=== PATIENT | female | born 1990 | race Caucasian/White ===

== ENCOUNTER 2020-01-19 17:36 | Inpatient (IN) | payer OTHER, SELFPAY ==
[2020-01-19] VITALS (16 sets, daily range): BP systolic 114–138; BP diastolic 65–106; PULSE 80–98; TEMP 36.7–37.1; BMI 30.1
--- NOTE | 2020-01-19 19:02 | LDADM ---
This patient, Jaylin Lamar, was admitted to Labor/Delivery/Recovery 105 on 01/19/20 at 17:36. Plans for labor, pain management and were discussed with patient. Patient/family oriented to hospital policies and general routines including ID bracelet, bed and alarms, visiting hours, pain management, procedures, bathroom and other care routines, personal items, smoking policy, room service/diet and guest tray routines, security routines, and visiting hours. Patient/Family are encouraged to report perceived risks to care and to ask questions if they do not understand what they are told or what they should do. See OBIX for further documentation.
[2020-01-19] MEDS: LACTATED RINGERS 1,000 ML 125 ML IV CONT (19:39)
[2020-01-19 20:19] LABS: Basophils Percent Auto 0.3 % (0.2-1.2); Eosinophils Absolute Auto 0.1 K/mm3 (0-0.3); Eosinophils Percent Auto 1.1 % (0-4.4); Hematocrit 33.7 % (37.0-47.0); Hemoglobin 11.2 g/dL (12.0-15.0); Immature Granulocyte Absolute 0.08 K/mm3 (0.00-0.031); Immature Granulocyte Percent A 0.7 % (0-0.5); Lymphocytes Absolute Auto 2.53 K/mm3 (0.9-3.2); Lymphocytes Percent Auto 22.3 % (18.3-44.2); Mean Corpuscular HGB Conc 33.2 g/dl (32-36); Mean Corpuscular Hemoglobin 29.2 pg (26-34); Mean Platelet Volume 11.2 fl (7.4-10.4); Monocytes Absolute Auto 0.8 K/mm3 (0.1-0.6); Monocytes Percent Auto 7.2 % (2.6-8.5); Neutrophils Absolute Auto 7.8 K/mm3 (1.3-6.7); Neutrophils Percent Auto 68.4 % (45.5-73.1); Platelet Count Result 172 k/mm3 (150-375); Red Blood Count 3.83 M/mm3 (4.2-5.4); Red Cell Distribution Width 14.2 % (11.5-14.5); White Blood Count 11.4 K/mm3 (4.5-10.0)
[2020-01-20] VITALS (87 sets, daily range): BP systolic 82–129; BP diastolic 45–94; PULSE 66–214; RESP 14–18; TEMP 36.4–37.5; O2SAT 84–100
[2020-01-20] MEDS: LACTATED RINGERS 1,000 ML 125 ML IV CONT ×3 (03:00→07:29)
[2020-01-20] MEDS: AMPICILLIN 2 GM/NS 100 ML 2 GM/100 ML BAG IVPB (03:58)
--- NOTE | 2020-01-20 07:10 | P.PNAN_ITS ---
Anes - Eval Pre Procedure Procedure: Labor epidural Date/Time: 01/20/20 07:10 Surgeon: Mary Desouza Preop Diagnosis: IUP Pre Op Diagnosis: PREIN Patient Data Age: 29 Gender: F Height: 1.52 m Weight: 70 kg Last Vital Signs Temp 36.4 C 01/20/20 06:16 Pulse 73 01/20/20 07:00 Resp 16 01/20/20 05:30 BP 120/65 01/20/20 07:00 Allergies Allergy/AdvReac Type Severity Reaction Status Date / Time No Known Allergies Allergy Verified 12/27/19 12:36 Home Medications Medication Instructions Recorded Confirmed Type PNV cmb#95-ferrous fumarate-FA 1 tablet PO DAILY 12/27/19 12/27/19 History [] aspirin 81 mg PO DAILY 12/27/19 12/27/19 History ergocalciferol (vitamin D2) See Rx Instructions .ROUTE .COMPLEX 12/27/19 12/27/19 History [Vitamin D2] ferrous sulfate [Iron (ferrous 325 mg PO DAILY 12/27/19 12/27/19 History sulfate)] Laboratory Tests 01/19/20 01/19/20 01/19/20 19:27 19:54 20:14 WBC 11.4 K/mm3 H K/mm3 (4.5-10.0) RBC 3.83 M/mm3 L M/mm3 (4.2-5.4) Hgb 11.2 g/dL L g/dL (12.0-15.0) Hct 33.7 % L % (37.0-47.0) MCV 88.0 fl fl (80-100) MCH 29.2 pg pg (26-34) MCHC 33.2 g/dl g/dl (32-36) RDW 14.2 % % (11.5-14.5) Plt Count 172 k/mm3 k/mm3 (150-375) MPV 11.2 fl H fl (7.4-10.4) Immature Gran % (Auto) 0.7 % H % (0-0.5) Neut % (Auto) 68.4 % % (45.5-73.1) Lymph % (Auto) 22.3 % % (18.3-44.2) [place] % (Auto) 7.2 % % (2.6-8.5) Eos % (Auto) 1.1 % % (0-4.4) Baso % (Auto) 0.3 % % (0.2-1.2) Lymph # (Auto) 2.53 K/mm3 K/mm3 (0.9-3.2) [place] # (Auto) 0.8 K/mm3 H K/mm3 (0.1-0.6) Eos # (Auto) 0.1 K/mm3 K/mm3 (0-0.3) Baso # (Auto) 0.0 K/mm3 K/mm3 (0.0-0.1) Abs Immat Gran (auto) 0.08 K/mm3 H K/mm3 (0.00-0.031) Absolute Neuts (auto) 7.8 K/mm3 H K/mm3 (1.3-6.7) Absolute Nucleated RBC 0.0 K/mm3 K/mm3 (0.0-0.012) Nucleated RBC % 0.0 % % (0.0-0.2) RPR Pending Blood Type AB Positive Antibody Screen Negative Patient hx anesthesia problems: none Family hx anesthesia problems: none [facility] Family History Family History (Updated 12/27/19 @ 12:40 by Jeanie Escamilla RN) Other No pertinent family history Social History Social History Smoking status: Never smoker Substance use: never Gender identity (if verbalized by the patient): Female Spiritual care concerns: No Exam Day of Procedure 01/20/20 07:10
[2020-01-20] MEDS: AMPICILLIN 1 GM/NS 50 ML 1 GM/50 ML BAG IVPB (08:12)
[2020-01-20] MEDS: ONDANSETRON INJ 4 MG/2 ML VIAL IV PUSH (08:12)
--- NOTE | 2020-01-20 08:18 | WPDOBADMIT ---
Obstetrics - Admit Note Admission Note: record reviewed. No pertinent additions to the history and/or any subsequent changes in the physical findings that are not consistent with the expected course of the were found. Additions to the history and/or subsequent changes in the physical findings follow. None.Here with [facility] now in labor. Cervix per RN now 5 cm. Just got epidural. FHTs Reactive
--- NOTE | 2020-01-20 10:49 | PM.OBPRVD ---
OB - Delivery Note Procedure Delivery date: 01/20/20 Procedure: Intrapartal events: None Induction method: none Delivery augmentation: pitocin Delivery monitor: external FHT and external uterine Route of delivery: Laceration description: Perineal - 2nd Degree (and button hole left labia majora 1 1/2 cm in length) Delivery repair: vicryl Specimen: No Estimated blood loss (mL): 125 Anesthesia type: Epidural Disposition: floor Baby Date of : 01/20/20 Weeks of gestation at delivery: 39 Infant gender: Male Weight (pounds): 8 Weight (ounces): 7 presentation: vertex Placenta delivery description: Spontaneous cord vessel description: 3 Vessels score one minute: 8 score five minutes: 9
--- NOTE | 2020-01-20 10:51 | PM.OBDSVD ---
DS: Diagnosis Discharge Diagnosis (1) 39 weeks gestation of : Code(s): Z3A.39 - 39 weeks gestation of Status: Resolved (2) Vaginal delivery: Code(s): O80 - Encounter for full-term uncomplicated delivery Status: Acute OB - DS: Summary OB Procedures : NST OB Procedures Intrapartum: Spontaneous Vag Delivery OB Procedures: : None Peripartum Data Delivery Method: Natural Vaginal Laceration description: Periurethral - 2nd Degree (button hole left labia; and 2nd degree midline) complications: none Status at Discharge Functional status at discharge: independent ambulation Overall status at discharge: patient is progressing back to baseline Time Spent with Patient Time attestation: Total time spent providing and/or coordinating discharge services: DS: Data Data Completed and Pending Labs on day of discharge: Labs from last 24 hours 01/19/20 01/19/20 01/19/20 20:14 19:54 19:27 WBC 11.4 H RBC 3.83 L Hgb 11.2 L Hct 33.7 L MCV 88.0 MCH 29.2 MCHC 33.2 RDW 14.2 Plt Count 172 MPV 11.2 H Immature Gran % (Auto) 0.7 H Neut % (Auto) 68.4 Lymph % (Auto) 22.3 [place] % (Auto) 7.2 Eos % (Auto) 1.1 Baso % (Auto) 0.3 Lymph # (Auto) 2.53 [place] # (Auto) 0.8 H Eos # (Auto) 0.1 Baso # (Auto) 0.0 Abs Immat Gran (auto) 0.08 H Absolute Neuts (auto) 7.8 H Absolute Nucleated RBC 0.0 Nucleated RBC % 0.0 RPR Pending Blood Type AB Positive Antibody Screen Negative Discharge Plan Discharge Attending physician on discharge: Mary Desouza Discharging Clinician: Mary Desouza Anticipated Discharge Date/Time: 01/22/20 10:53 Patient Disposition: Home, Self-Care Activity: may shower and pelvic rest Diet: regular Discharge Instructions: Education: Mom and Baby Guide Given to: Mother Follow-Up: Call your delivering provider's office for an appointment to be seen in: 4 Weeks Mom and baby should come to the [facility] for the follow-up appointment. Appointment Date/Time: January 23, 2020 at 9:00 am What to expect at your follow-up visit: Blood Pressure Check Call [phone] if you are unable to keep your appointment time. BREAST CARE: 1. Wear a snug supportive bra. 2. For engorgement discomfort: Breast Feeding: A. Apply warm moist washcloths B. Express milk as needed to relieve engorgement C. Wear loose clothing Bottle Feeding: A. May apply ice packs 3. For sore nipples: A. Identify correct latch-on B. Apply warm moist washcloths before and after nursing C. Air dry nipples after nursing D. May apply Lansinoh cream to nipples PERINEAL CARE: 1. Until bleeding stops, use your jameson bottle after urinating 2. Change your pad frequently throughout the day 3. You may take sitz baths several times a day (fill your bathtub with warm water and soak for 20 minutes.) Do NOT bathe in the water 4. No tub baths until seen by your physician - You may shower ACTIVITY: 1. Rest as much as possible. 2. Do not exercise or lift anything heavier than your baby (such as laundry or other children.) 3. Avoid stairs or driving as much as possible. 4. Do not put anything into the vagina. No douching, tampons, or sexual activity until seen by physician. NOTIFY PHYSICIAN IF YOU HAVE ANY QUESTIONS OR IF ANY OF THE FOLLOWING SYMPTOMS OCCUR: 1. If your perineum becomes red, swollen, or more painful than what you have experienced in the hospital. 2. If your vaginal bleeding becomes foul smelling. 3. If your vaginal bleeding becomes more heavy than a period or if your bleeding changes from pink to bright red. However, you may pass an occasional walnut-sized clot once or twice for the first week . 4. If you experience a sharp, shooting pain in you ca
[2020-01-20 10:56] LABS: Rapid Plasma Reagin Non-Reactive (NonReactive)
[2020-01-20] MEDS: WITCH HAZEL 40 PADS 1 PAD TOPICAL (12:19)
[2020-01-20] MEDS: BENZOCAINE 20% AER SPR (*SP) 56 GM CAN 1 SPRAY TOPICAL (12:19)
[2020-01-20] MEDS: IBUPROFEN 600 MG TABLET PO (15:11)
[2020-01-20] MEDS: LANOLIN (LANSINOH) 7.5 GM CREAM 1 APPLIC TOPICAL (15:12)
--- NOTE | 2020-01-20 16:15 | PC.NURSE ---
Consulted with patient, mother reports infant it took 45 minutes before latching for first feeding, then eagerly latched nursing for 15 minutes. Reviewed feeding cues, frequencies, duration of feedings, feeding elimination flow sheet, and signs of adequate intake. Demonstrated stimulation techniques to wake for feeding. Assisted with to breast. Reviewed positioning/alignment in cross cradle, holding breast in U hold and guided asymmetrical latch on. Several attempts before infant was able to latch correctly. nursed eagerly, with steady draws and frequent swallowing noted. Reviewed signs of a correct latch, effective nursing and suck swallow ratio. was able to maintain latch without discomfort to mother. Nipple care reviewed. Advised to stimulate to keep awake and nursing effectively. Instructed mother to call out for RN assistance if she is unable to latch infant for feeding or she has discomfort with nursing. Instructed feeding should be initiated three hours from start of last feeding or if feeding cues are noted before. Mother voiced understanding of information shared.
[2020-01-21] MEDS: IBUPROFEN 600 MG TABLET PO ×2 (03:42→16:35)
[2020-01-21 05:58] LABS: Hemoglobin 8.8 g/dL (12.0-15.0)
[2020-01-21 07:50] VITALS: BP 115/66; PULSE 72; RESP 16; TEMP 36.6; O2SAT 99
--- NOTE | 2020-01-21 07:57 | P.PNOB_ITS ---
OB - PN: Subj Subjective Date/time seen: 01/21/20 07:57 Patient comments: no complaints baby status: doing well [place] feeding status: exclusively breast feeding OB - PN: Obj Data Labs CBC & Chem 7: 01/21/20 05:46 Labs: Laboratory Results - last 24 hr 01/19/20 01/21/20 19:27 05:46 Hgb 8.8 L Hct 27.0 L RPR Non-reactive OB - PN A/P Plan day: 1 Plan: routine care Comments: plans POP Time Spent With Patient Time: Total time spent is greater than 50% in coordination of care (as documented) at patient's floor/unit and/or counseling patient: Exam : Bimanual exam- vagina & uterus: other (Uterus firm, nt @U)
[2020-01-21] MEDS: DOCUSATE SODIUM 100 MG CAPSULE PO ×2 (08:46→16:35)
[2020-01-21] MEDS: MULTIVIT/MIN/PREN/FOL AC/IRON TABLET 1 TAB PO (08:46)
[2020-01-21] MEDS: POLYSACCHARIDE IRON COMPLEX 150 MG CAPSULE PO ×2 (08:46→16:35)
[2020-01-21 20:10] VITALS: BP 112/70; PULSE 65; RESP 16; TEMP 36.6; O2SAT 100
--- NOTE | 2020-01-22 07:20 | PC.NURSE ---
Pt introductions made and plan of care discussed per post , pain management, breast feeding, daily care activities and pending discharge to home. PT verbalized understanding of such care.
[2020-01-22 08:05] VITALS: BP 108/62; PULSE 65; RESP 18; TEMP 36.8; O2SAT 97
--- NOTE | 2020-01-22 08:14 | PM.OBPNVD ---
OB - PN: Subj Subjective Date/time seen: 01/22/20 08:14 Patient comments: no complaints, pain well controlled, tolerating diet and flatus present [place] baby status: doing well and nursing well feeding status: exclusively breast feeding OB - PN: Obj Data Labs CBC & Chem 7: 01/21/20 05:46 OB - PN A/P Plan day: 2 Plan: routine care, discharge home and follow up 6 weeks Comments: BF instructed Time Spent With Patient Time: Total time spent is greater than 50% in coordination of care (as documented) at patient's floor/unit and/or counseling patient: Time with patient: 15 - 25 minutes Review of Systems Constitutional: Constitutional: Reports no additional constitutional complaints Cardiovascular: Cardiovascular: Reports no additional cardiovascular complaints Respiratory: Respiratory: Reports no additional respiratory complaints Gastrointestinal: Gastrointestinal: Reports no additional gastrointestinal complaints Exam Const: General: comfortable, no acute distress, alert and awake Resp: Effort & Inspection: normal respiratory effort Cardio: Rate: regular rate GI: Auscultation: normal bowel sounds Other: Fundus firm below umbilicus
--- NOTE | 2020-01-22 08:15 | PM.OBDSVD ---
OB - DS: Summary OB Procedures : None OB Procedures Intrapartum: Spontaneous Vag Delivery OB Procedures: : None Peripartum Data Delivery Method: Natural Vaginal complications: none Time Spent with Patient Time attestation: Total time spent providing and/or coordinating discharge services: Discharge Plan Discharge Attending physician on discharge: Mary Desouza Discharging Clinician: Mary Desouza Anticipated Discharge Date/Time: 01/22/20 10:53 Patient Disposition: Home, Self-Care Activity: may shower and pelvic rest Diet: regular Patient Instructions: Antibiotic Form Stand Alone Forms: General Discharge Information Follow-up/Referrals: Mary Desouza MD [Physician] - 6 Weeks Discharge Medications: New Slynd 4 mg (28) tablet 4 mg PO DAILY 24 Days Qty: 24 RF: 6 Continued PNV cmb#95-ferrous fumarate-FA [] 28 mg iron- 800 mcg Tablet 1 tablet PO DAILY RF: 0 ergocalciferol (vitamin D2) [Vitamin D2] 1,250 mcg (50,000 unit) Capsule See Rx Instructions .ROUTE .COMPLEX RF: 0 Discontinued ferrous sulfate [Iron (ferrous sulfate)] 325 mg (65 mg iron) Tablet 325 mg PO DAILY RF: 0 aspirin 81 mg Tablet,Chewable 81 mg PO DAILY RF: 0 Date of admission: 01/19/20 17:36 Primary Care Provider: UNKNOWN,DOCTOR Admitting Provider: Mary Desouza Attending physician on admission: Mary Desouza Condition: Stable
[2020-01-22] MEDS: IBUPROFEN 600 MG TABLET PO ×2 (08:21→17:20)
[2020-01-22] MEDS: MULTIVIT/MIN/PREN/FOL AC/IRON TABLET 1 TAB PO (08:21)
[2020-01-22] MEDS: POLYSACCHARIDE IRON COMPLEX 150 MG CAPSULE PO ×2 (08:21→18:34)
[2020-01-22] MEDS: DOCUSATE SODIUM 100 MG CAPSULE PO ×2 (08:22→18:34)
--- NOTE | 2020-01-22 09:31 | PC.NURSE ---
Patient viewed the discharge video Mother & Baby Care, The First Two Weeks . Patient was given the opportunity and encouraged to ask questions. Patient verbalized understanding of information shared and has been given the mother/baby guide for home reference.
--- NOTE | 2020-01-22 12:25 | PC.NURSE ---
Infant has not had a wet diaper as ICP would like, mother will supplement and does not wish to use a bottle. Discussed a SNS feeding. Parents are willing to use. SNS provided and demonstrated use. FOB was able to assist with feeding with correct placement. eagerly latches nursing with long draws and freq swallowing noted. Parents states they feel comfortable with SNS use and will use SNS as a finger feeder if unable to use at the breast. Demonstrated how to use SNS as a finger feeder. Both voice understanding of use.
--- NOTE | 2020-01-22 15:46 | PC.NURSE ---
PT received discharge instructions per protocol and verbalized understanding of such instructions
--- NOTE | 2020-01-22 17:25 | PC.NURSE ---
PT discharged to home ambulatory accompanied by spouse and to waiting car. follow up appts confirmed
--- NOTE | 2020-01-23 09:20 | PC.NURSE ---
Addendum entered by Danita Howe RN 01/24/20 17:01: note should be 01-22-2020 Original Note: Mother is able to independently latch infant with appropriate positioning/alignment. She denies any nipple discomfort, is feeding as required and waking infant to feed if needed. has had 8 effective feedings in the past 24 hours, and is currently meeting outcomes for weight, jaundice and feeding frequencies. has not had a wet diaper for several hours. Mother is wanting to go home after 24 hours. Discussed output and possible need to supplement per ICP request if no urine output by 1300. Mother states she feels confident to continue effective at home and will follow ICP request. Reviewed transition to breast milk, signs of adequate intake, and engorgement/relief. Instructed to call ICP if intake/output less than required. Reviewed regular medications mother is taking. Information provided per Sara. Reviewed community resources on the [facility] website and in the Mom/Baby guide. Information on outpatient services provided. Mother has no further questions at this time.
[2020-01-23 09:34] VITALS: BP 122/69; PULSE 84; RESP 18; TEMP 36.7
== END 2020-01-22 17:25 | disposition home or self-care (01) | DRG 807 ==
LOC: ANHLDR 01-23 09:43 → ANHOB2 01-23 09:43
PROVIDERS: Admitting Provider Obstetrics & Gynecology Gynecology; Visit Provider Obstetrics & Gynecology
DX: O69.81X0 Labor and delivery complicated by cord around neck, without compression, not applicable or unspecified (principal); Z37.0 Single live birth; Z3A.39 39 weeks gestation of pregnancy; O70.1 Second degree perineal laceration during delivery; O42.02 Full-term premature rupture of membranes, onset of labor within 24 hours of rupture
CPT/HCPCS: 36415; 84112; 85014; 85018; 85025; 86592; 86850; 86900; 86901; A9270; J0290; J2405; J2590; J2795; J3010; J7120

== ENCOUNTER 2021-08-19 11:58 | Outpatient (RCR) | payer BC, SELFPAY ==
--- NOTE | ~2021-08-19 | US_ITS ---
EXAMINATION: US OB <=14 wk fetus w TV EXAM DATE: 08/17/2021 11:07 INDICATION: 1st trimester with vaginal spotting.. TECHNIQUE: Pelvic obstetrical transabdominal and transvaginal sonogram was performed by a technologi . There are multiple grayscale and Doppler images available for interpretation. There are no risa ier studies of this gestation for comparison. FINDINGS: Uterus measures 7.9 x 6.3 x 4.7 cm. There is intrauterine gestation sac with yolk sac and s uspect a pole measuring 4 mm in length corresponding to estimated gestational age 6 weeks 0 day s. No cardiac activity is identified at this time, but cannot exclude that this is viable. Ther e is small subchorionic hematoma measuring 1.4 x 2.0 x 1.4 cm. Consider one week follow-up pelvic son ogram. Ovaries not identified. IMPRESSION: Gestation sac with small pole. Can't confirm cardiac activity at this time. Small subchorionic hematoma. Consider one week follow-up pelvic sonogram. Reviewed, dictated and finalized at location B. IMPRESSION: Gestation sac with small pole. Can't confirm cardiac a ctivity at this time. Small subchorionic hematoma. Consider one week follow-up pelvic sonogram.
== END 2021-11-15 23:59 | disposition home or self-care (01) ==
LOC: ANHIMG 11:58
PROVIDERS: PCP Internal Medicine; Visit Provider Obstetrics & Gynecology Gynecology
DX: O26.851 Spotting complicating pregnancy, first trimester (principal); Z3A.00 Weeks of gestation of pregnancy not specified
CPT/HCPCS: 36415; 76801; 76817; 84702

== ENCOUNTER → 2021-08-23 13:56 | Outpatient (CLI) | payer BC, SELFPAY ==
--- NOTE | ~2021-08-23 | US_ITS ---
EXAMINATION: US OB transvaginal EXAM DATE: 08/23/2021 14:39 INDICATION: Complete or unspecified spontaneous without complic. 1st trimester. TECHNIQUE: Pelvic obstetrical transvaginal sonogram was performed by a technologist. There are mult iple grayscale and Doppler images available for interpretation. Comparison is made to prior examinati on from 08/17/2021. FINDINGS: Previously seen intrauterine gestation sac is no longer identified. Endometrial stripe is a bout 5 mm at the fundus, is significantly more thickened at the lower uterine segment up to 18 mm. Po tentially could be due to retained products of conception in the lower uterine segment, but this connor urement is still considered upper limits of normal. The ovaries are morphologically normal. IMPRESSION: Previously seen gestation sac no longer identified. Normal endometrial thickness at the f undus with significantly more thickened measurement at lower uterine segment, possible retained produ cts of conception. Reviewed, dictated and finalized at location A. IMPRESSION: Previously seen gestation sac no longer identified. Normal endometr ial thickness at the fundus with significantly more thickened measurement at lo wer uterine segment, possible retained products of conception.
== END ==
PROVIDERS: Visit Provider Obstetrics & Gynecology Gynecology
DX: Z36.9 Encounter for antenatal screening, unspecified (principal); Z3A.00 Weeks of gestation of pregnancy not specified; O03.9 Complete or unspecified spontaneous abortion without complication
CPT/HCPCS: 76817

== ENCOUNTER → 2022-07-05 12:49 | Outpatient (CLI) | payer BC, SELFPAY ==
--- NOTE | ~2022-07-05 | US_ITS ---
EXAMINATION: US pelvic complete DATE: 07/05/2022 13:11 INDICATION: Pelvic pain Comparison:08/23/2021 TECHNIQUE: Multiple transabdominal and endovaginal sonographic images of the pelvis performed. FINDINGS: The uterus measures 7.6 x 3.5 x 5.6 cm. The endometrial complex measures 4 mm. The right ovary measures 4 x 1.7 x 3 cm and the left ovary measures 3.2 x 1.8 x 1.4 cm. There is an i nvoluting cyst in the right ovary measuring 1.7 cm. There are small follicles in each ovary. Normal d oppler signal in both ovaries. There is no free fluid in the pelvis. There are no abnormal masses seen on either side. IMPRESSION: 1. Involuting cyst of the right ovary measuring 1.7 cm. Reviewed, dictated and finalized at location A.
== END ==
PROVIDERS: PCP Internal Medicine; Visit Provider Nurse Practitioner
DX: R10.2 Pelvic and perineal pain (principal); N83.201 Unspecified ovarian cyst, right side
CPT/HCPCS: 76856

== ENCOUNTER → 2022-11-26 10:05 | Outpatient (CLI) | payer BC, SELFPAY ==
--- NOTE | ~2022-11-26 | US_ITS ---
EXAMINATION: US OB <=14 wk fetus w TV INDICATION: History of miscarriage TECHNIQUE: Sonography of the pelvis was performed by transabdominal and transvaginal techniques. COMPARISON: None. RESULT: Uterus: Orientation: Anteverted. 8.3 x 5.0 x 5.4 cm. Myometrium: homogeneous echogenicity. Gestation: - Intrauterine gestational sac: Single present. - Yolk sac: Present, not directly measured. - Embryo: Single present. - Ellis rump length: 0.43 cm, corresponding gestational age 6 weeks, 1 days. -Gestational heart rate: present 114 bpm. -Subgestational hematoma: Absent . Right ovary: Not visualized. Left ovary: 3.1 x 3.3 x 3.4 cm. Normal sonographic appearance with physiologic follicles. . 2.7 cm simple cyst. Pelvis free fluid: None. IMPRESSION: Single, live intrauterine gestation. Estimated Gestational Age: 6 weeks, 1 days by crown rump length. GABRIELLE by ultrasound 07/21/2023. Reviewed, dictated and finalized at location K. ER MAKER IMPRESSION: Single, live intrauterine gestation. Estimated Gestational Age: 6 weeks, 1 days by crown rump length. GABRIELLE by ultras ound 07/21/2023.
== END ==
PROVIDERS: Visit Provider Obstetrics & Gynecology Gynecology
DX: O26.21 Pregnancy care for patient with recurrent pregnancy loss, first trimester (principal); Z3A.01 Less than 8 weeks gestation of pregnancy
CPT/HCPCS: 76801; 76817

== ENCOUNTER → 2022-12-02 13:23 | Outpatient (CLI) | payer BC, SELFPAY ==
--- NOTE | ~2022-12-02 | US_ITS ---
EXAMINATION: US OB transvaginal DATE: 12/02/2022 13:55 INDICATION: Gestational dating TECHNIQUE: Real-time transvaginal obstetric ultrasound. FINDINGS: No prior studies for comparison. The uterus measures 8.6 x 4.7 x 6.5 cm. There is an intrauterine gestational sac, with pole meng ntified. The crown rump length measures 0.9 cm, which correlates with a estimated gestational age of 7 weeks 0 days. heart tones are identified measuring 145 BPM. There is a left ovarian cyst m easuring 2.2 cm. IMPRESSION: 1. SL IUP with an EGA of 7 weeks, 0 days (EDC by current ultrasound of 07/21/2023). 2: Corpus luteal cyst of the left ovary measuring 2.2 cm. Reviewed, dictated and finalized at location A. CAL RESEARCH ASSOCIATE IMPRESSION: 1. SL IUP with an EGA of 7 weeks, 0 days (EDC by current ultrasound of 3). 2: Corpus luteal cyst of the left ovary measuring 2.2 cm.
== END ==
PROVIDERS: PCP Internal Medicine; Visit Provider Obstetrics & Gynecology Gynecology
DX: Z36.87 Encounter for antenatal screening for uncertain dates (principal); O34.81 Maternal care for other abnormalities of pelvic organs, first trimester; N83.12 Corpus luteum cyst of left ovary; Z3A.01 Less than 8 weeks gestation of pregnancy
CPT/HCPCS: 76817

== ENCOUNTER → 2023-02-25 10:23 | Outpatient (CLI) | payer BC, SELFPAY ==
--- NOTE | ~2023-02-25 | US_ITS ---
EXAMINATION: US OB /maternal detail DATE: 02/25/2023 12:17 INDICATION: anatomic survey. TECHNIQUE: Real-time ultrasound of the pelvis was performed. COMPARISON: None. FINDINGS: There is a single living fetus in vertex presentation. The placenta is posterior, 8.7 cm from the ce rvix. The cervical length is 3.9 cm on transabdominal images, which is normal. heart rate is 15 5 beats per minute (bpm). The amniotic fluid volume is subjectively normal. The following biometric data were obtained: Biparietal diameter (BPD): 4.3 cm; head circumference (HC): 16.4 cm; abdominal circumference (AC): 14 .4 cm; femur length (FL): 3.0 cm. These measurements are concordant. Estimated weight is 295 g +/- 44 g, which correlates with the 40th percentile when 07/18/23 is u sed as estimated date of delivery. As single measurements, these parameters are each equal to the following estimated gestational ages: BPD: 19 weeks 1 days. HC: 19 weeks 1 days. AC: 19 weeks 5 days. FL: 19 weeks 2 days. estimated gestational age based solely on measurements from this exam is 19 weeks 2 days +/- 1 weeks 2 days. The cerebral ventricles, cerebellum, cisterna magna, nuchal fold, lip, and visualized portions of the spine are normal. The heart is normal. The diaphragm, stomach, kidneys, and bladder are normal. Ther e are two umbilical arteries to yield a 3-vessel cord. The cord insertion is normal. IMPRESSION: 1. Single living fetus in vertex presentation. 2. Estimated weight is 295 g +/- 44 g, which correlates with the 40th percentile when 07/18/23 is used as estimated date of delivery. Note that estimated date of delivery based on the first ultras ound on 11/26/2022 would be 07/21/2023. Reviewed, dictated and finalized at location A. IMPRESSION: 1. Single living fetus in vertex presentation. 2. Estimated weight is 295 g +/- 44 g, which correlates with the 40th pe rcentile when 07/18/23 is used as estimated date of delivery. Note that estimate d date of delivery based on the first ultrasound on 11/26/2022 would be 07/21/20 23.
== END ==
PROVIDERS: PCP Obstetrics & Gynecology Gynecology; Visit Provider Obstetrics & Gynecology Gynecology
DX: Z36.9 Encounter for antenatal screening, unspecified (principal); Z3A.19 19 weeks gestation of pregnancy
CPT/HCPCS: 76805

== ENCOUNTER 2023-07-09 19:57 | Outpatient (CLI) | payer BC, SELFPAY ==
[2023-07-20 08:10] VITALS: BP 112/74; PULSE 88
== END 2023-07-09 20:46 | disposition home or self-care (01) ==
LOC: ANHOBOP 20:56
PROVIDERS: Visit Provider Obstetrics & Gynecology Gynecology
DX: O41.8X90 Other specified disorders of amniotic fluid and membranes, unspecified trimester, not applicable or unspecified (principal); Z3A.00 Weeks of gestation of pregnancy not specified
CPT/HCPCS: 59025; 84112

== ENCOUNTER 2023-07-10 11:36 | Observation (INO) | payer BC, SELFPAY ==
--- NOTE | 2023-07-10 11:36 | OBADM ---
This patient, Jaylin Lamar, admitted to the OB room Labor/Delivery/Recovery 107 for observation. Patient/family oriented to hospital policies and general routines including ID bracelet, bed and alarms, visiting hours, pain management, procedures, bathroom and other care routines, personal items, smoking policy, room service/diet, and visiting hours. Patient/Family are encouraged to report perceived risks to care and to ask questions if they do not understand what they are told or what they should do.
[2023-07-10 13:00] VITALS: BMI 29.7
--- NOTE | 2023-07-17 11:29 | PM.OBTRLD ---
OB - Triage/Final Diagnosis Visit Information Reason for evaluation: threatened labor Comments/Additional reasons for admission: I have assessed the risk for this patient, Jaylin Barrett Willard, and determined that she would benefit from observation care.
== END 2023-07-10 15:05 | disposition home or self-care (01) ==
PROVIDERS: Admitting Provider Obstetrics & Gynecology Gynecology; Visit Provider Obstetrics & Gynecology Gynecology
DX: O47.1 False labor at or after 37 completed weeks of gestation (principal); Z3A.38 38 weeks gestation of pregnancy
CPT/HCPCS: 84112; G0378; G0379

== ENCOUNTER 2023-07-12 05:53 | Inpatient (IN) | payer BC, SELFPAY ==
[2023-07-12] VITALS (99 sets, daily range): BP systolic 86–128; BP diastolic 43–84; PULSE 59–99; RESP 18; TEMP 36.4–37.2; O2SAT 97–100; BMI 29.5
[2023-07-12 06:44] LABS: Basophils Percent Auto 0.3 % (0.2-1.2); Eosinophils Absolute Auto 0.3 K/mm3 (0-0.3); Eosinophils Percent Auto 3.1 % (0-4.4); Hematocrit 32.7 % (37.0-47.0); Hemoglobin 11.1 g/dL (12.0-15.0); Immature Granulocyte Absolute 0.09 K/mm3 (0.00-0.031); Lymphocytes Absolute Auto 1.87 K/mm3 (0.9-3.2); Lymphocytes Percent Auto 19.9 % (18.3-44.2); Mean Corpuscular HGB Conc 33.9 g/dl (32-36); Mean Corpuscular Hemoglobin 30.8 pg (26-34); Mean Corpuscular Volume 90.8 fl (80-100); Mean Platelet Volume 10.7 fl (7.4-10.4); Monocytes Absolute Auto 0.6 K/mm3 (0.1-0.6); Monocytes Percent Auto 6.8 % (2.6-8.5); Neutrophils Absolute Auto 6.5 K/mm3 (1.3-6.7); Neutrophils Percent Auto 68.9 % (45.5-73.1); Platelet Count Result 214 k/mm3 (150-375); White Blood Count 9.4 K/mm3 (4.5-10.0)
[2023-07-12] MEDS: LACTATED RINGERS 1,000 ML 125 ML IV CONT ×2 (06:45→11:34)
[2023-07-12] MEDS: OXYTOCIN 30 UNITS/NS 500 ML 30 UNITS/500 ML BAG IV CONT (06:45)
--- NOTE | 2023-07-12 07:28 | LDADM ---
This patient, Jaylin Lamar, was admitted to Labor/Delivery/Recovery 107 on 07/12/23 at 05:53. Plans for labor, pain management and were discussed with patient. Patient/family oriented to hospital policies and general routines including ID bracelet, bed and alarms, visiting hours, pain management, procedures, bathroom and other care routines, personal items, smoking policy, room service/diet and guest tray routines, security routines, and visiting hours. Patient/Family are encouraged to report perceived risks to care and to ask questions if they do not understand what they are told or what they should do. See OBIX for further documentation.
--- NOTE | 2023-07-12 07:33 | WPDOBADMIT ---
Obstetrics - Admit Note Admission Note: record reviewed. No pertinent additions to the history and/or any subsequent changes in the physical findings that are not consistent with the expected course of the were found. Additions to the history and/or subsequent changes in the physical findings follow. None.
--- NOTE | 2023-07-12 07:33 | PM.OBPNLAB ---
Pain Control Date/time seen: 07/12/23 07:20 Comments: Feeling occasional mild contractions. good movement. SVE per RN 2cm . Contractions Monitor mode: External Contraction pattern: Irregular Status status: Category l Assessment and Plan Pitocin rate (mU/min): 2 Assessment: induction ongoing Comments: Discussed plan of care. Begining IOL. Discussed option of amniotomy. Pt prefers to wait at this time. Planning to eat breakfast before active labor.
--- NOTE | 2023-07-12 09:48 | PM.OBPNLAB ---
Pain Control Date/time seen: 07/12/23 09:48 Pain control: tolerating well Comments: Feeling regular mild ctx Pelvic Exam Dilation (cm): 2 Effacement (%): 75 station: -2 Amniotic membrane status: Intact Contractions Monitor mode: External Contraction frequency: 3 Contraction pattern: Irregular Contraction phase: Contraction Contraction intensity: Moderate Status status: Category l Assessment and Plan Assessment: induction ongoing Plan: continuous present management Comments: CNM to bedside. Discussed plan of care an option for amniotomy. Discussed risks, benefits, and expectations of breaking water. Patient is agreeable and desires AROm. Amniotomy performed and there was a small return of clear amniotic fluid. Patient tolerated procedure well. Anticipate vaginal . Dr. Desouza updated.
[2023-07-12 13:54] LABS: Rapid Plasma Reagin Non-Reactive (NonReactive)
--- NOTE | 2023-07-12 14:04 | PM.OBPRVD ---
OB - Delivery Note Procedure Delivery date: 07/12/23 Procedure: Induction method: AROM and Per Pitocin Protocol Delivery augmentation: Pitocin Delivery monitor: External FHT and External Uterine Route of delivery: Episiotomy description: None Laceration Description: None and Other (1.5 cm sized hole to left labia present from first . pt requested this be repaired. Verbal consent obtained. Left labial tissue removed anterior to and posterior to the hole. Labia stitched with 4.0 vicryl on SH. ) Delivery repair: vicryl Specimen: No Quantitative Blood Loss (ml): 150 Anesthesia type: Epidural Disposition: Floor Narrative: Patient arrived for elective induction at term. Pitocin was started. Amniotomy performed. And she quickly progressed to complete dilation. She pushed and quickly brought the head to a full crown. She delivered the head over intact perineum. There was good restitution and slow delivery of the anterior shoulder followed by the posterior shoulder. The remainder of the was smoothly delivered and the was placed on the maternal abdomen and care was transferred to the nursery staff. After 1 minute of life, the cord was doubly clamped and cut. Cord blood, cord gases, and cord segment were obtained. The placenta delivered spontaneously and there was good uterine tone. patient previously requested repair of a left labial defect (Finger sized hole)which was present since her 1st . The repair was previously discussed in the office and she again requested and consented to this. A small portion of the labia was cut above and below this hole. The labia was then sutured closed. There was excellent hemostasis. All delivery counts correct. Mother and baby skin to skin in the delivery room. Baby Date of : 07/12/23 Time of : 13:28 Weeks of gestation at delivery: 39 gender: Female Weight (pounds): 0 (weight unavailable at the time of this note.) presentation: compound (with right hand) position: Right Occiput Anterior Placenta delivery description: Spontaneous Cord Vessel Description: 3 Vessels, Clamped/Cut and Delayed Cord Clamping score one minute: 8 score five minutes: 9
[2023-07-12] MEDS: OXYTOCIN 30 UNITS/NS 500 ML 30 UNITS/500 ML BAG 125 UNITS IV CONT (14:06)
--- NOTE | 2023-07-12 14:11 | PM.OBDSVD ---
DS: Admitting Diagnosis Discharge Date 07/13/[address] Desouza Admitting Diagnosis 33 y.o. at 39 weeks gestation IOL at term Asthma Fibromyalgia DS: Discharge Diagnosis Discharge Diagnosis (1) Vaginal delivery: Code(s): O80 - Encounter for full-term uncomplicated delivery Status: Acute (2) Patient is a currently breast-feeding mother: Code(s): Z39.1 - Encounter for care and examination of lactating mother Status: Acute OB - DS: Summary Hospital Course Hospital Course: uncomplicated OB Procedures : Ultrasound OB Procedures Intrapartum: Spontaneous Vag Delivery OB Procedures: : None Peripartum Data Delivery Method: Natural Vaginal Laceration Description: None and Labial (left labial defect repaired) Episiotomy description: None complications: none Status at Discharge Functional status at discharge: independent ambulation Overall status at discharge: patient is progressing back to baseline Time Spent with Patient Time attestation: Total time spent providing and/or coordinating discharge services: DS: Data Data Completed and Pending Labs on day of discharge: Labs from last 24 hours 07/12/23 06:25 WBC 9.4 RBC 3.60 L Hgb 11.1 L Hct 32.7 L MCV 90.8 MCH 30.8 MCHC 33.9 RDW 14.0 Plt Count 214 MPV 10.7 H Immature Gran % (Auto) 1.0 H Neut % (Auto) 68.9 Lymph % (Auto) 19.9 Sully % (Auto) 6.8 Eos % (Auto) 3.1 Baso % (Auto) 0.3 Lymph # (Auto) 1.87 Sully # (Auto) 0.6 Eos # (Auto) 0.3 Baso # (Auto) 0.0 Abs Immat Gran (auto) 0.09 H Absolute Neuts (auto) 6.5 Absolute Nucleated RBC 0.0 Nucleated RBC % 0.0 RPR Non-reactive Blood Type AB Positive Antibody Screen Negative Discharge Plan Discharge Attending physician on discharge: Mary Desouza Discharging Clinician: Mary Desouza Anticipated Discharge Date/Time: 07/12/23 14:13 Patient Disposition: Home, Self-Care Activity: may shower Diet: as tolerated Wound Care Instructions: follow printed instructions Discharge Instructions: Education: Mom and Baby Guide Given to: Mother Follow-Up: Call your delivering provider's office for an appointment to be seen in: 6 Weeks Mom and baby should come to the [facility] for the follow-up appointment. Appointment Date/Time: Friday, July 14, 2023 at 9:00 a.m. What to expect at your follow-up visit: Blood Pressure Check Physical Assessment Call [phone] if you are unable to keep your appointment time. BREAST CARE: * Wear a snug supportive bra. * For engorgement discomfort: Breast Feeding: * Apply warm moist washcloths * Express milk as needed to relieve engorgement * Wear loose clothing * For sore nipples: * Identify correct latch-on * Apply warm moist washcloths before and after nursing * Air dry nipples after nursing * May apply Lansinoh cream to nipples EPISIOTOMY/PERINEAL CARE: * Until bleeding stops, use your jameson bottle after urinating * Change your pad frequently throughout the day * You may take sitz baths several times a day (fill your bathtub with warm water and soak for 20 minutes.) Do NOT bathe in the water * No tub baths until seen by your physician - You may shower ACTIVITY: * Rest as much as possible. * Do not exercise or lift anything heavier than your baby (such as laundry or other children.) * Avoid stairs or driving as much as possible. * Do not put anything into the vagina. No douching, tampons, or sexual activity until seen by physician. NOTIFY PHYSICIAN IF YOU HAVE ANY QUESTIONS OR IF ANY OF THE FOLLOWING SYMPTOMS OCCUR: * If your perineum becomes red, swollen, or more painful than what you have experienced in the hospital. * If your vaginal bleeding becomes foul smelling. * If your vaginal bleeding becomes more heavy than a period or if your bleed
--- NOTE | 2023-07-12 14:46 | WPDANESEPPF ---
Anes - Initial Pre Proc Eval Date/Time: 07/12/23 14:46 Surgeon: Mary Desouza MD Pre Op Diagnosis: IOL Patient Data Age: 33 Gender: F Height: 1.52 m Weight: 68.5 kg Last Vital Signs Temp 36.6 C 07/12/23 14:00 Pulse 76 07/12/23 14:01 BP 104/65 07/12/23 14:01 Pulse Ox 100 07/12/23 14:42 O2 Del Method Room Air 07/12/23 07:27 Allergies Allergy/AdvReac Type Severity Reaction Status Date / Time No Known Allergies Allergy Verified 07/12/23 07:37 Home Medications Medication Instructions Recorded Confirmed Type ergocalciferol (vitamin D2) 1,250 2,000 unit PO DAILY 12/27/19 07/12/23 History mcg (50,000 unit) capsule (Vitamin D2) vit no.95-ferrous 1 tablet PO DAILY 12/27/19 07/12/23 History fumarate 28 mg-folic acid 800 mcg tablet () albuterol sulfate 90 mcg/actuation 2 puff inhalation QID PRN Wheezing 06/19/23 06/19/23 History aerosol inhaler ferrous sulfate 325 mg (65 mg 325 mg PO BID 06/19/23 07/12/23 History iron) tablet loratadine 10 mg tablet (Claritin) 10 mg PO DAILY 06/19/23 07/12/23 History Laboratory Tests 07/12/23 06:25 WBC 9.4 K/mm3 (4.5-10.0) RBC 3.60 L M/mm3 (4.2-5.4) Hgb 11.1 L g/dL (12.0-15.0) Hct 32.7 L % (37.0-47.0) MCV 90.8 fl (80-100) MCH 30.8 pg (26-34) MCHC 33.9 g/dl (32-36) RDW 14.0 % (11.5-14.5) Plt Count 214 k/mm3 (150-375) MPV 10.7 H fl (7.4-10.4) Immature Gran % (Auto) 1.0 H % (0-0.5) Neut % (Auto) 68.9 % (45.5-73.1) Lymph % (Auto) 19.9 % (18.3-44.2) Bay % (Auto) 6.8 % (2.6-8.5) Eos % (Auto) 3.1 % (0-4.4) Baso % (Auto) 0.3 % (0.2-1.2) Lymph # (Auto) 1.87 K/mm3 (0.9-3.2) Bay # (Auto) 0.6 K/mm3 (0.1-0.6) Eos # (Auto) 0.3 K/mm3 (0-0.3) Baso # (Auto) 0.0 K/mm3 (0.0-0.1) Abs Immat Gran (auto) 0.09 H K/mm3 (0.00-0.031) Absolute Neuts (auto) 6.5 K/mm3 (1.3-6.7) Absolute Nucleated RBC 0.0 K/mm3 (0.0-0.012) Nucleated RBC % 0.0 % (0.0-0.2) RPR Non-reactive (NonReactive) Blood Type AB Positive Antibody Screen Negative Patient hx anesthesia problems: none Family hx anesthesia problems: none Results Review: All pre-operative results and documents have been reviewed as part of the pre-operative evaluation. [facility] Family History Family History Other No pertinent family history Social History Social History Smoking status: Never smoker Substance use: never Lack of Transportation: No Lack of Food: Never True Current Housing: I Have Housing Concerned About Future Housing: No Difficulty Paying Gas/Electric Bills: No Difficulty Paying for Meds: No Currently Unemployed: No Education: Associate Degree Difficulty w/ Childcare or Family Care: No Gender identity (if verbalized by the patient): Female Spiritual care concerns: No Anes - Eval Final PreProcedure Day of Procedure 07/12/23 14:46 Patient weight: overweight Neurological: alert and oriented ASA classification: II Emergent: no Anesthetic plan: proceed Anesthesia type and monitoring: regional epidural and standard monitoring Results Review: All pre-operative results and documents have been reviewed as part of the pre-operative evaluation. Informed Consent: The patient's anesthetic plan and its attendant risks and benefits were discussed with the patient/family/POA. Questions were solicited and answers provided to the satisfaction of the patient/family/POA.
[2023-07-12] MEDS: WITCH HAZEL 40 PADS 1 PAD TOPICAL (15:51)
[2023-07-12] MEDS: BENZOCAINE 20% AER SPR (*SP) 56 GM CAN 1 SPRAY TOPICAL (15:51)
[2023-07-12] MEDS: IBUPROFEN 600 MG TABLET PO ×2 (16:07→22:53)
--- NOTE | 2023-07-12 16:50 | PC.NURSE ---
Patient transferred to post room #279 per wheelchair from labor and delivery. Support person present. Oriented to unit, room, information board, rooming in, admission packet and security measures. Patient verbalizes understanding.
--- NOTE | 2023-07-12 20:15 | PC.NURSE ---
Patient was given the opportunity to view the discharge video Mother & Baby Care, The First Two Weeks and to ask questions. Patient declined viewing the video and has been given the mother/baby guide for home reference.
[2023-07-13 05:48] LABS: Hemoglobin 10.2 g/dL (12.0-15.0)
--- NOTE | 2023-07-13 07:54 | PM.OBPNVD ---
OB - PN: Subj Subjective Date/time seen: 07/13/23 07:54 Patient comments: no complaints and pain well controlled baby status: doing well OB - PN: Obj Data Labs 07/13/23 04:09 Labs: Laboratory Results - last 24 hr 07/12/23 07/13/23 06:25 04:09 Hgb 10.2 L Hct 31.0 L RPR Non-reactive OB - PN A/P Plan day: 1 Plan: routine care, discharge home, follow up 6 weeks and other (Plans IUD) Time Spent With Patient Time: Total time spent is greater than 50% in coordination of care (as documented) at patient's floor/unit and/or counseling patient: Exam : Bimanual exam- vagina & uterus: other (Uterus firm, nt @U)
[2023-07-13 08:00] VITALS: PULSE 77; RESP 16; O2SAT 98
[2023-07-13 08:30] VITALS: BP 104/66; PULSE 77; RESP 16; TEMP 36.6; O2SAT 98
--- NOTE | 2023-07-13 08:39 | WPDANLDPN2 ---
Anes-Prog Note L&D Date/Time: 07/13/23 08:39 Comfortable throughout: labor and delivery Neuraxial method: epidural Epidural/Spinal procedure site: clean & non-tender Neuro status: Neuro function grossly intact. Cardiovascular status: normal Respiratory status: normal Airway patency: baseline Mental status: baseline Post-Op hydration status: normal Vital Signs: Last Vital Signs Temp 98.9 F 07/12/23 22:50 Pulse 66 07/12/23 22:50 Resp 18 07/12/23 22:50 BP 97/56 L 07/12/23 22:50 Pulse Ox 100 07/12/23 15:46 O2 Del Method Room Air 07/12/23 07:27 Pain score (VAS): 0 I/O: Intake & Output 07/12/23 07/13/23 07/13/23 23:59 07:59 15:59 Intake Total 500 Output Total 50 Balance 450 Post-procedural complaints: none Patient feedback: Patient satisfied with anesthetic care.
[2023-07-13 13:05] VITALS: BP 112/69; PULSE 63; RESP 16; TEMP 37.6; O2SAT 100
--- NOTE | 2023-07-13 15:25 | PC.NURSE ---
[id number] Introductions were made, then consulted with patient to assess needs related to . Mother verbalizes she is able to independently latch infant with appropriate positioning/alignment. She denies any nipple discomfort and is responsively . Infant is currently meeting outcomes for weight, output, jaundice and feeding frequencies of 8-12 times in 24 hours. Mother declines any additional assistance/education at this time. Mother is encouraged to call for assistance if her doesn?t latch or there is discomfort with latching. Mother voiced understanding of information shared, RN's name written on the communication board and shared the use of the mom/baby guide for an additional resource.
[2023-07-14 09:19] VITALS: BP 101/69; PULSE 90; RESP 18; TEMP 37; O2SAT 100
== END 2023-07-13 16:22 | disposition home or self-care (01) | DRG 807 ==
LOC: ANHLDR 14:14 → ANHOB2 17:04
PROVIDERS: Advanced Practice Midwife; Admitting Provider Obstetrics & Gynecology Gynecology; Visit Provider Obstetrics & Gynecology Gynecology
DX: O62.3 Precipitate labor (principal); Z37.0 Single live birth; Z3A.39 39 weeks gestation of pregnancy; O99.52 Diseases of the respiratory system complicating childbirth; J45.909 Unspecified asthma, uncomplicated; O99.892 Other specified diseases and conditions complicating childbirth; M79.7 Fibromyalgia
CPT/HCPCS: 36415; 85014; 85018; 85025; 86592; 86850; 86900; 86901; A9270; J2590; J2795; J7120

== ENCOUNTER 2023-11-06 09:54 | Outpatient (CLI) | payer BC, SELFPAY ==
--- NOTE | ~2023-11-06 | US_ITS ---
EXAMINATION: US soft tissue pelvic DATE: 11/06/2023 10:17 INDICATION: Right groin lump. TECHNIQUE: Multiple grayscale and Doppler ultrasound images of the pelvis were obtained. COMPARISON: None FINDINGS: There is a 1.5 x 1.3 x 0.6 cm subcutaneous mass in the right groin that demonstrates simila r echogenicity and echotexture to normal subcutaneous fat. IMPRESSION: 1. 1.5 cm subcutaneous mass in the right groin, likely a lipoma. Reviewed, dictated and finalized at location A. [employer]
== END 2023-11-06 09:55 ==
LOC: GOSHIMG 09:56
PROVIDERS: PCP Obstetrics & Gynecology Gynecology; Visit Provider Obstetrics & Gynecology Gynecology
DX: R22.2 Localized swelling, mass and lump, trunk (principal)
CPT/HCPCS: 76857